=== PATIENT | male | born 1965 | race American Indian/Alaskan Native ===

== ENCOUNTER 2018-07-29 23:04 | Emergency (ER) | payer OTHER ==
[2018-07-30] MEDS ORDERED: CATAPRES PO ONE (02:05)
--- NOTE | 2018-07-30 02:10 | Emergency Department Report ---
HPI - General Chief Complaint: Eye Problems Time Seen by Provider: 07/30/18 02:05 - HPI HPI: The patient is a 53-year-old -[place] male who presents to the ER complaining of blurry vision 2 hours prior to arrival that began while at rest. Symptoms have been constant since onset and pt rates them as moderate in severity. Patient reports the symptoms are located both eyes and describes the quality as blurred vision. Symptoms associated with elevated blood pressure but denies any focal weakness, chestt pain, or shortness of breath. ED Past Medical Hx - Past Medical History Previous Medical History?: Yes Hx Hypertension: Yes - Surgical History Past Surgical History?: No - Social History Smoking Status: Current Every Day Smoker Substance Use Type: Alcohol - Medications Home Medications: Home Medications Medication Instructions Recorded Confirmed Last Taken Type amLODIPine [Norvasc] 10 mg PO DAILY 07/30/18 07/30/18 07/29/18 History ED Review of Systems ROS: Stated complaint: BLURRED VISION/HBP Other details as noted in HPI Comment: All other systems reviewed and negative Constitutional: denies: see HPI Eyes: eye pain ENT: denies: ear pain Skin: denies: rash, lesions Neurological: headache Physical Exam - Physical Exam Vital Signs: Vital Signs 07/29/18 07/30/18 23:07 01:23 Temperature 98 F Pulse Rate 99 H 82 Respiratory 18 19 Rate Blood Pressure 178/112 Blood Pressure 166/100 [Right] O2 Sat by Pulse 100 100 Oximetry Physical Exam: - General Limitations: No Limitations General appearance: alert, in no apparent distress - Head Head exam: Present: atraumatic, normocephalic - Eye Eye exam: Present: normal appearance - ENT ENT exam: Present: mucous membranes moist - Neck Neck exam: Present: normal inspection - Respiratory Respiratory exam: Present: normal lung sounds bilaterally. Absent: respiratory distress - Cardiovascular Cardiovascular Exam: Present: regular rate, normal rhythm. Absent: systolic murmur, diastolic murmur, rubs, gallop - GI/Abdominal GI/Abdominal exam: Present: soft, normal bowel sounds - Extremities Exam Extremities exam: Present: normal inspection - Back Exam Back exam: Present: normal inspection - Neurological Exam Neurological exam: Present: alert, oriented X3 - Psychiatric Psychiatric exam: Present: normal affect, normal mood - Skin Skin exam: Present: warm, dry, intact, normal color. Absent: rash ED Course Vital Signs 07/29/18 07/30/18 23:07 01:23 Temperature 98 F Pulse Rate 99 H 82 Respiratory 18 19 Rate Blood Pressure 178/112 Blood Pressure 166/100 [Right] O2 Sat by Pulse 100 100 Oximetry ED Medical Decision Making - Lab Data Result diagrams: 07/30/18 02:11 07/30/18 02:11 Critical care attestation.: If time is entered above; I have spent that time in minutes in the direct care of this critically ill patient, excluding procedure time. ED Disposition Clinical Impression: Tension headache Disposition: DC-01 TO HOME OR SELFCARE Is pt being admited?: No Does the pt Need Aspirin: No Condition: Stable Instructions: Tension Headache (ED) Referrals: PRIMARY CARE, [Primary Care Provider] - 3-5 Days
[2018-07-30 02:21] LABS: Basophils # (Auto) 0.1 K/mm3 (0.0-0.1); Basophils % (Auto) 0.9 % (0.0-1.8); Eosinophils # (Auto) 0.1 K/mm3 (0.0-0.4); Eosinophils % (Auto) 1.8 % (0.0-4.3); Hematocrit 41.6 % (35.5-45.6); Lymphocytes # (Auto) 0.7 K/mm3 (1.2-5.4); Lymphocytes % (Auto) 10.5 % (13.4-35.0); Mean Corpuscular HGB Conc 34 % (32-34); Mean Corpuscular Volume 85 fl (84-94); Monocytes # (Auto) 0.5 K/mm3 (0.0-0.8); Platelet Count 167 K/mm3 (140-440); Red Blood Count 4.88 M/mm3 (3.65-5.03); Red Cell Distribution Width 14.8 % (13.2-15.2)
[2018-07-30 02:44] LABS: Alanine Aminotransferase 33 units/L (7-56); Albumin 4.3 g/dL (3.9-5); BUN/Creatinine Ratio 9; Blood Urea Nitrogen 7 mg/dL (9-20); Calcium 9.1 mg/dL (8.4-10.2); Hemolysis Index 2
--- NOTE | 2018-07-30 05:36 | Cat Scan Report ---
PROCEDURE: CT HEAD/BRAIN WO CON TECHNIQUE: Nonenhanced axial images were obtained through the cerebrum and posterior fossa. HISTORY: blurred vision with high blood pressure COMPARISONS: None FINDINGS: Normal covington-white matter differentiation. No acute intra-axial or extra-axial fluid collections. The ventricles are midline. No midline shift, mass effect or herniation. No cerebral edema or discernible mass within the brain. Unremarkable calvarium and paranasal sinuses. IMPRESSION: 1. No acute intracranial abnormality. This document is electronically signed by Mesha Hassan MD., July 30 2018 05:33:25 AM ET
[2018-07-30 06:10] VITALS: BP 145/84
== END 2018-07-30 06:11 | disposition home or self-care (01) ==
LOC: ED 23:04
DX: H53.8 Other visual disturbances (principal); I10 Essential (primary) hypertension; F17.200 Nicotine dependence, unspecified, uncomplicated
CPT/HCPCS: 36415; 70450; 80053; 82962; 85025

== ENCOUNTER 2022-01-06 09:16 | Outpatient (CLI) | payer OTHER ==
[2022-01-06 13:00] LABS: Alanine Aminotransferase 31 units/L (7-56); Albumin 4.7 g/dL (3.9-5); BUN/Creatinine Ratio 25; Blood Urea Nitrogen 27 mg/dL (9-20); Calcium 9.5 mg/dL (8.4-10.2); Chol/HDL Ratio 4.12 %; HDL Cholesterol 62 mg/dL (40-59); Hemolysis Index 12; LDL Cholesterol,Direct 166 mg/dL (50-130)
[2022-01-06 13:07] LABS: Hematocrit 44.7 % (35.5-45.6); Hemoglobin 14.6 gm/dl (11.8-15.2); Mean Corpuscular HGB Conc 33 % (32-34); Mean Corpuscular Volume 87 fl (84-94); Platelet Count 251 K/mm3 (140-440); Red Blood Count 5.12 M/mm3 (3.65-5.03); Red Cell Distribution Width 13.5 % (13.2-15.2)
[2022-01-06 15:36] LABS: Band Neutrophils # (Manual) 0.1 K/mm3; Basophils % (Manual) 0 % (0.0-1.8); Myelocytes # (Manual) 0.1 K/mm3; Total Cells Counted 100
[2022-01-06 15:38] LABS: Large Platelets Few; Platelet Estimate Cons; RBC Morphology Normal
[2022-01-10 13:34] LABS: Vitamin D, 25-OH, D2 <4 ng/mL
== END 2022-01-06 09:17 | disposition home or self-care (01) ==
LOC: LABHHL 09:16
PROVIDERS: ATTEND Internal Medicine
DX: E55.9 Vitamin D deficiency, unspecified (principal); R39.11 Hesitancy of micturition; R73.03 Prediabetes; I10 Essential (primary) hypertension; R53.83 Other fatigue
CPT/HCPCS: 36415; 80053; 80061; 82306; 83036; 84153; 84443; 85007; 85025